=== PATIENT | male | born 1975 | race Caucasian/White ===

== ENCOUNTER 2020-10-18 07:33 | Outpatient (CLI) | payer BC, SELFPAY ==
--- NOTE | 2020-10-18 07:39 | MM_ITS ---
WS: [id number] Bilateral diagnostic digital mammogram, 10/18/2020 Clinical Data: BREAST LUMP Comparison: None. Findings: No spiculated masses or clustered calcifications are seen. There is fibroglandular tissue in the left breast. The right breast shows no fibroglandular tissue. There is a marker superior to the left nipp le but there is no abnormal tissue adjacent to this marker. There are no secondary signs of carcinoma . There are lymph nodes in both axilla MM/[id number] Impression: 1. Negative right breast. 2. Prominent fibroglandular tissue extending from the areola of the left breast but no spiculated masses or clustered calcifications. 3. Bilateral breast ultrasound will be done. BIRADS: 2-Benign FOLLOW UP: See Report The CAD title checker was used.
--- NOTE | 2020-10-18 07:39 | US_ITS ---
WS: [id number] Bilateral breast ultrasound, 10/18/2020 Clinical Data: BREAST LUMP Comparison: None. Findings: The right breast is normal without cysts or masses. The left breast shows an increase in subcutaneous tissue but no cysts or masses are seen. US/US breast LT limited* [id number] Impression: 1. Normal right breast. 2. Increase in normal tissue compared to the right breast in left breast withou t cysts or masses. 3. Recommend clinical follow-up BIRADS: 2-Benign FOLLOW UP: See Report
== END 2020-10-18 07:34 | disposition home or self-care (01) ==
LOC: RADSHAW 07:38
PROVIDERS: PCP Family Medicine; Visit Provider Internal Medicine
DX: N63.20 Unspecified lump in the left breast, unspecified quadrant (principal)
CPT/HCPCS: 76642; 77066

== ENCOUNTER → 2021-08-28 09:59 | Outpatient (BNVA) | payer BC, SELFPAY | PROVIDERS: PCP Family Medicine; Visit Provider Nurse Practitioner Family | DX: J32.9 Chronic sinusitis, unspecified (principal) | CPT/HCPCS: 87635 ==

== ENCOUNTER → 2022-03-26 08:34 | Outpatient (BNVA) | payer BC, SELFPAY | PROVIDERS: PCP Family Medicine; Visit Provider Orthopaedic Surgery | DX: M25.562 Pain in left knee (principal) | CPT/HCPCS: 73560; 73565 ==